=== PATIENT | male | born 1940 | race Caucasian/White ===

== ENCOUNTER → 2016-03-30 | Outpatient (CLI) | payer OTHER ==
--- NOTE | 2016-03-30 17:59 | REP ---
RIGHT HIP, TWO VIEWS: Two views of the right hip are performed. There is no acute fracture or dislocation. No intrinsic osseous pathology is seen. There are mild degenerative changes with joint space narrowing, subchondral sclerosis and spurring. IMPRESSION: Mild degenerative changes. No fracture or dislocation. Signed by Chano Naranjo MD 03/31/2016 05:14 P
--- NOTE | 2016-03-30 18:08 | REP ---
RIGHT FEMUR: AP and lateral views of the right femur are performed. Mild joint space narrowing, subchondral sclerosis and spurring is seen at the hip joint. There are mild vascular calcifications in the soft tissues. No acute fracture or dislocation is seen. IMPRESSION: No acute fracture or dislocation. Mild degenerative changes. Signed by Chano Naranjo MD 03/31/2016 05:14 P
--- NOTE | 2016-03-30 18:23 | REP ---
PELVIS, SINGLE VIEW: AP view of the pelvis is performed. There is no acute or dislocation. There are degenerative changes of the lower lumbar spine. IMPRESSION: No acute fracture or dislocation. Signed by Chano Naranjo MD 03/31/2016 05:14 P
== END ==
LOC: M ADAMS 14:47
PROVIDERS: ATTEND Physician Assistant Medical
DX: M25.551 Pain in right hip (principal); W00.9XXA Unspecified fall due to ice and snow, initial encounter; Y92.9 Unspecified place or not applicable; Y93.9 Activity, unspecified; Y99.8 Other external cause status; X58.XXXA Exposure to other specified factors, initial encounter
CPT/HCPCS: 72170; 73502; 73552; G0463

== ENCOUNTER 2016-04-03 09:37 | Emergency (ER) | payer MEDICARE, OTHER ==
--- NOTE | 2016-04-03 11:50 | EDDOCDS ---
Physician Documentation [facility] Name: Neymar Wallis Age: 76 yrs Sex: Male : 1940 Arrival Date: 04/03/2016 Time: 09:37 Bed PR Private MD: Alissa Gan N. Disposition: 04/03/16 11:22 Discharged to Home/Self Care. Impression: Cyst of epididymis - SIMPLE CYSTS IN EACH TESTIS ON U.S., Hydrocele, unspecified - LEFT, Pain in right hip - GROIN PAIN. - Condition is Stable. - Discharge Instructions: Hip Pain. - Prescriptions for Naprosyn 250 mg Oral Tablet - take 1 tablet by ORAL route every 12 hours As needed ONLY TAKE EVERY 12 HOURS. PRN.DO NOT TAKE ANY IBUPROFEN WITH THIS MEDICATION.; 30 tablet. - Medication Reconciliation, Local Pharmacy Hours form. - Follow up: Emergency Department; When: As needed; Reason: Worsening of conditions. Follow up: Private Physician; When: 2 - 3 days; Reason: Wound/Symptom Recheck, Recheck today's complaints, Continuance of care. - Problem is new. - Symptoms are unchanged. - Notes: YOUR ULTRASOUND SHOWED SOME SMALL SIMPLE CYSTS ON THE TESTES AND A HYDROCELE ON THE LEFT SIDE, WHICH IS A FLUID COLLECTION THAT IS TYPICALLY BENIGN, BUT CAN CAUSE SOME SWELLING AND PAIN. PLEASE FOLLOW UP WITH YOUR PRIMARY CARE PROVIDER IN THE NEXT WEEK TO RECHECK YOUR SYMPTOMS. THERE WAS NO SIGN OF A HERNIA ON THE ULTRASOUND. Historical: - Allergies: Codeine Sulfate (Unknown); - Home Meds: 1. omeprazole 40 mg Oral cpDR 1 cap once daily (Last dose: 04/03/2016 05:00) 2. tamsulosin 0.4 mg oral cp24 1 cap nightly (Last dose: 04/02/2016) 3. simvastatin 20 mg Oral tab 1 tab once daily (Last dose: 04/03/2016 05:00) 4. ramipril 5 mg Oral cap 1 cap nightly (Last dose: 04/02/2016) 5. Advair Diskus 45/21 Inhl 2 puff 2 times per day (Last dose: 04/03/2016 05:00) 6. ProAir HFA 90 mcg/actuation inhalation HFAA 1 puff every 4 hours as needed (Last dose: Unknown) 7. ibuprofen 200 mg Oral cap 3 caps every 4-6 hours as needed (Last dose: 04/03/2016 07:00) - PMHx: GERD; Hypertension; Hypercholesterolemia; BPH; COPD; - PSHx: umbilical hernia repair; - Social history: Smoking status: Patient states former smoker of tobacco. No barriers to communication noted, The patient speaks fluent Uzbek. - Family history: Not pertinent. - : The pt / caregiver states he / she is not on anticoagulants. Home medication list is obtained from the patient. - Exposure Risk Screening:: None identified. Vital Signs: 04/03 09:38 BP 173 / 86; Pulse 69; Resp 16; Temp 96.0; Pulse Ox 98% ; Weight 97.98 kg / 216.01 lbs; elp Height 5 ft. 10 in. (177.80 cm); Pain 8/10; 11:33 BP 158 / 77; Pulse 61; Resp 18; Temp 98.7(O); Pulse Ox 96% on R/A; Pain 0/10; nb2 09:38 Body Mass Index 30.99 (97.98 kg, 177.80 cm) elp MDM: 09:59 US Scrotal Ordered. EDMS 10:03 Financial registration complete. lg 10:09 Pelvis, limited US Ordered. EDMS 10:09 DUPLEX SCAN LIMITED (DOPPLER) Ordered. EDMS 10:51 [facility] Payment Agreement was scanned into [employer]. and attached to record. lg Signatures: Dispatcher [employer] EDAR Telma Rush RN RN dls Ganter, LoriLee, Reg Reg lg Isidra Baltazar RN RN jc4 Yaz Barillas PA-C PA-C dt4 The chart was reviewed and I authenticate all verbal orders and agree with the evaluation and treatment provided.Attachments: 10:51 [facility] Payment Agreement lg MTDD
--- NOTE | 2016-04-03 11:50 | EDDOCDS ---
Nurse's Notes [facility] Name: Neymar Wallis Age: 76 yrs Sex: Male : 1940 Arrival Date: 04/03/2016 Time: 09:37 Bed PR2 Private MD: Alissa Gan N. Diagnosis: Cyst of epididymis-SIMPLE CYSTS IN EACH TESTIS ON U.S.;Hydrocele, unspecified-LEFT;Pain in right hip-GROIN PAIN Presentation: 04/03 09:40 Presenting complaint: Patient states: "I slipped and fell before Myles, they jc4 X-rayed my hip and now we are looking for something else". Complains of pain in right groin. States developed pain 3-4 days following fall. Denies any urinary symptoms. Pt states that pain is worse with movement, unable to lie on left side. Adult Sepsis Screening: The patient does not have new or worsening altered mentation. Patient's respiratory rate is less than 22. Systolic blood pressure is greater than 100. Patient has a qSOFA score of 0- Negative Sepsis Screen. Suicide/Homicide risk assessment- the patient denies having any suicidal and/or homicidal ideations and does not present with any other emotional, behavioral or mental health complaints. Status: Patient is not a dispatcher service or work or dependent. Transition of care: patient was not received from another setting of care. 09:40 Acuity: GARY Level 4 jc4 09:40 Method Of Arrival: Walkin/Carried/Asstd jc4 Triage Assessment: 09:46 General: Appears in no apparent distress. Pain: Pain currently is 5 out of 10 on a pain jc4 scale. GI: Reports that he has had no nausea, vomiting or diarrhea. Historical: - Allergies: Codeine Sulfate (Unknown); - Home Meds: 1. omeprazole 40 mg Oral cpDR 1 cap once daily (Last dose: 04/03/2016 05:00) 2. tamsulosin 0.4 mg oral cp24 1 cap nightly (Last dose: 04/02/2016) 3. simvastatin 20 mg Oral tab 1 tab once daily (Last dose: 04/03/2016 05:00) 4. ramipril 5 mg Oral cap 1 cap nightly (Last dose: 04/02/2016) 5. Advair Diskus 45/21 Inhl 2 puff 2 times per day (Last dose: 04/03/2016 05:00) 6. ProAir HFA 90 mcg/actuation inhalation HFAA 1 puff every 4 hours as needed (Last dose: Unknown) 7. ibuprofen 200 mg Oral cap 3 caps every 4-6 hours as needed (Last dose: 04/03/2016 07:00) - PMHx: GERD; Hypertension; Hypercholesterolemia; BPH; COPD; - PSHx: umbilical hernia repair; - Social history: Smoking status: Patient states former smoker of tobacco. No barriers to communication noted, The patient speaks fluent Nicaraguan. - Family history: Not pertinent. - : The pt / caregiver states he / she is not on anticoagulants. Home medication list is obtained from the patient. - Exposure Risk Screening:: None identified. Screenin:47 Screening information is obtained from the patient. Primary language is Nicaraguan. Fall dls risk: No risks identified. Assistance ADL's: requires no assistance with activities of daily living. Abuse/DV Screen: The patient / caregiver reports he/she is: not in a situation that causes fear, pain or injury. Nutritional screening: No deficits noted. Advance Directives: Currently, there is no health care proxy. There is no active DNR order. There is no living will. There is no Power of Tub Wash Operator. Advance directive information has not previously been placed in an [facility] medical record. home support is adequate. Assessment: 11:47 General: Appears slender, uncomfortable, well developed, well nourished, well groomed, dls Behavior is cooperative. Awake, alert, oriented. Skin warm and dry. Moves all extremities. Bilateral breath sounds clear. Respirations unlabored. Abdomen soft, non-tender. No apparent distress. The patient / caregiver is instructed regarding the plan of care and ED course. Vital Signs: 09:38 BP 173 / 86; Pulse 69; Resp 16; Temp 96.0; Pulse Ox 98% ; Weight 97.98 kg; Height 5 ft. elp 10 in. (177.80 cm); Pain 8/10; 11:33 BP 158 / 77; Pulse 61; Resp 18; Temp 98.7(O); Pulse Ox 96% on R/A; Pain 0/10; nb2 09:38 Body Mass Index 30.99 (97.98 kg, 177.80 cm) elp Vitals: 09:38 Log In Time: April 03, 2016 at 09:36. [facility] ED Course: 09:38 Patient visited by Radha Sparrow PCA. elp 09:38 Alissa Gan is Private Physician. elp 09:38 Patient moved to Waiting elp 09:39 Patient visited by Radha Sparrow PCA. elp 09:39 Patient moved to Pre RCE elp 09:42 Triage Initiated jc4 09:47 Patient moved to Triage 2 jc4 09:48 [facility] dt4 09:48 Abdifatah Nuñez MD is Attending Physician. dt4 09:48 Patient visited by Yaz Barillas PA-C. dt4 09:59 Patient moved to TR2 dls 10:18 Patient moved to Ultrasound br3 10:31 Patient name changed from Neymar\\S\\G\\S\\Bimal\\S\\ to Neymar\\S\\Gene\\S\\Bimal. EDMS 10:51 [facility] Payment Agreement was scanned into [employer] and attached to record. lg 10:53 Patient moved to TR2 br3 11:15 Patient visited by Telma Rush RN. dls 11:27 Patient moved to PR2 / 26 jc4 11:34 Patient visited by Michelle Saha. nb2 11:47 Patient has correct armband on for positive identification. Bed in low position. Call dls light in reach. 11:49 No IV's were initiated during this patient's visit. No procedures done that require dls assistance. Order Results: There are currently no results for this order. Outcome: 11:22 Discharge ordered by Provider. dt4 11:47 The following High Risk Discharge criteria are identified: None. Discharged to home dls ambulatory. Condition: stable. Discharge instructions given to patient, Instructed on discharge instructions, follow up and referral plans. medication usage, Demonstrated understanding of instructions, medications, Pt was receptive of discharge instructions/ teaching. Prescriptions given X 1. Ultrasound Study completed. 11:49 Discharge Assessment: Patient awake, alert and oriented x 3. No cognitive and/or dls functional deficits noted. Patient verbalized understanding of disposition instructions. patient administered narcotics - no. Property sent home with patient. 11:49 Patient left the ED. dls Signatures: Dispatcher [employer] EDMS Telma Rush RN RN Aristides Robbins Reg Reg lg Maggie Kamara br3 Isidra Baltazar, RN RN jc4 Radha Sparrow, EDSON BAND SAW OPERATOR [employer]KE CUTTING elp Yaz Barillas, ANGI PARyan dt4 Michelle Saha nb2 MTDD
--- NOTE | 2016-04-03 12:16 | REP ---
Soft-tissue nonvascular bilateral inguinal ultrasound: History: Right groin pain question hernia. Findings: Bilateral inguinal canals are scanned at rest and with Valsalva. There is no evidence of hernia on either side. No cyst, mass, or adenopathy is seen. Impression: Negative bilateral inguinal sonography. No evidence of hernia, cyst, mass, or adenopathy seen. Signed by Neptali Carbone MD 04/03/2016 02:06 P
--- NOTE | 2016-04-03 12:24 | REP ---
Scrotal sonography: History: Right groin pain. Findings: High-resolution bilateral scrotal sonography is seen. There is no evidence of intratesticular solid mass lesion. There is a 0.5 cm cyst in the superior pole of the right testis and a 0.4 cm simple cyst is seen in the right mid testis. There is a 9 mm cyst and two other smaller cysts in the left testis. A small focal hyperechoic 3 mm area is seen in the left testis which may be dystrophic calcification. There is a small left-sided hydrocele with hypoechoic fluid. Testicular Doppler flow is normal bilaterally. Resistive indices are 0.40 and 0.53 on the right and left respectively. Right testicular dimensions are 4.4 x 2.4 x 3.0 cm. Left testis measures 4.4 x 2.7 x 3.5 cm. There is a large cyst in the left epididymis measuring 19 x 12 x 14 mm. A 4 mm cyst is seen in the head of the epididymis on the right. No other abnormality. Impression: Small left-sided hydrocele. Bilateral simple cysts in each testis and a 19 mm cyst in the head of the epididymis on the left. No acute scrotal abnormality seen. Signed by Neptali Carbone MD 04/03/2016 02:06 P
--- NOTE | 2016-04-06 10:57 | EDDOCDS ---
Physician Documentation [facility] Name: Neymar Wallis Age: 76 yrs Sex: Male : 1940 Arrival Date: 04/03/2016 Time: 09:37 Bed PR Private MD: Alissa Gan N. Disposition: 04/03/16 11:22 Discharged to Home/Self Care. Impression: Cyst of epididymis - SIMPLE CYSTS IN EACH TESTIS ON U.S., Hydrocele, unspecified - LEFT, Pain in right hip - GROIN PAIN. - Condition is Stable. - Discharge Instructions: Hip Pain. - Prescriptions for Naprosyn 250 mg Oral Tablet - take 1 tablet by ORAL route every 12 hours As needed ONLY TAKE EVERY 12 HOURS. PRN.DO NOT TAKE ANY IBUPROFEN WITH THIS MEDICATION.; 30 tablet. - Medication Reconciliation, Local Pharmacy Hours form. - Follow up: Emergency Department; When: As needed; Reason: Worsening of conditions. Follow up: Private Physician; When: 2 - 3 days; Reason: Wound/Symptom Recheck, Recheck today's complaints, Continuance of care. - Problem is new. - Symptoms are unchanged. - Notes: YOUR ULTRASOUND SHOWED SOME SMALL SIMPLE CYSTS ON THE TESTES AND A HYDROCELE ON THE LEFT SIDE, WHICH IS A FLUID COLLECTION THAT IS TYPICALLY BENIGN, BUT CAN CAUSE SOME SWELLING AND PAIN. PLEASE FOLLOW UP WITH YOUR PRIMARY CARE PROVIDER IN THE NEXT WEEK TO RECHECK YOUR SYMPTOMS. THERE WAS NO SIGN OF A HERNIA ON THE ULTRASOUND. Historical: - Allergies: Codeine Sulfate (Unknown); - Home Meds: 1. omeprazole 40 mg Oral cpDR 1 cap once daily (Last dose: 04/03/2016 05:00) 2. tamsulosin 0.4 mg oral cp24 1 cap nightly (Last dose: 04/02/2016) 3. simvastatin 20 mg Oral tab 1 tab once daily (Last dose: 04/03/2016 05:00) 4. ramipril 5 mg Oral cap 1 cap nightly (Last dose: 04/02/2016) 5. Advair Diskus 45/21 Inhl 2 puff 2 times per day (Last dose: 04/03/2016 05:00) 6. ProAir HFA 90 mcg/actuation inhalation HFAA 1 puff every 4 hours as needed (Last dose: Unknown) 7. ibuprofen 200 mg Oral cap 3 caps every 4-6 hours as needed (Last dose: 04/03/2016 07:00) - PMHx: GERD; Hypertension; Hypercholesterolemia; BPH; COPD; - PSHx: umbilical hernia repair; - Social history: Smoking status: Patient states former smoker of tobacco. No barriers to communication noted, The patient speaks fluent Kyrgyz. - Family history: Not pertinent. - : The pt / caregiver states he / she is not on anticoagulants. Home medication list is obtained from the patient. - Exposure Risk Screening:: None identified. Vital Signs: 04/03 09:38 BP 173 / 86; Pulse 69; Resp 16; Temp 96.0; Pulse Ox 98% ; Weight 97.98 kg / 216.01 lbs; elp Height 5 ft. 10 in. (177.80 cm); Pain 8/10; 11:33 BP 158 / 77; Pulse 61; Resp 18; Temp 98.7(O); Pulse Ox 96% on R/A; Pain 0/10; nb2 09:38 Body Mass Index 30.99 (97.98 kg, 177.80 cm) elp MDM: 09:59 US Scrotal Ordered. EDMS 10:03 Financial registration complete. lg 10:09 Pelvis, limited US Ordered. EDMS 10:09 DUPLEX SCAN LIMITED (DOPPLER) Ordered. EDMS 10:51 [facility] Payment Agreement was scanned into [employer] and attached to record. lg 13:38 T-Sheet-- Draft Copy was scanned into [employer] and attached to record. gb 13:39 Radiology Report was scanned into [employer] and attached to record. gb Signatures: Dispatcher [employer] EDTelma Salgado RN RN dls Barnhardt, Gloria, Reg Reg gb Aristides Reynolds, Reg Reg lg Isidra Baltazar RN RN jc4 Yaz Barillas, ANGI musa4 The chart was reviewed and I authenticate all verbal orders and agree with the evaluation and treatment provided.Attachments: 10:51 [facility] Payment Agreement lg 13:38 T-Sheet-- Draft Copy gb Chart Complete MTDD
--- NOTE | 2016-04-06 10:57 | EDDOCDS ---
Physician Documentation [facility] Name: Neymar Wallis Age: 76 yrs Sex: Male : 1940 Arrival Date: 04/03/2016 Time: 09:37 Bed PR Private MD: Alissa Gan N. Disposition: 04/03/16 11:22 Discharged to Home/Self Care. Impression: Cyst of epididymis - SIMPLE CYSTS IN EACH TESTIS ON U.S., Hydrocele, unspecified - LEFT, Pain in right hip - GROIN PAIN. - Condition is Stable. - Discharge Instructions: Hip Pain. - Prescriptions for Naprosyn 250 mg Oral Tablet - take 1 tablet by ORAL route every 12 hours As needed ONLY TAKE EVERY 12 HOURS. PRN.DO NOT TAKE ANY IBUPROFEN WITH THIS MEDICATION.; 30 tablet. - Medication Reconciliation, Local Pharmacy Hours form. - Follow up: Emergency Department; When: As needed; Reason: Worsening of conditions. Follow up: Private Physician; When: 2 - 3 days; Reason: Wound/Symptom Recheck, Recheck today's complaints, Continuance of care. - Problem is new. - Symptoms are unchanged. - Notes: YOUR ULTRASOUND SHOWED SOME SMALL SIMPLE CYSTS ON THE TESTES AND A HYDROCELE ON THE LEFT SIDE, WHICH IS A FLUID COLLECTION THAT IS TYPICALLY BENIGN, BUT CAN CAUSE SOME SWELLING AND PAIN. PLEASE FOLLOW UP WITH YOUR PRIMARY CARE PROVIDER IN THE NEXT WEEK TO RECHECK YOUR SYMPTOMS. THERE WAS NO SIGN OF A HERNIA ON THE ULTRASOUND. Historical: - Allergies: Codeine Sulfate (Unknown); - Home Meds: 1. omeprazole 40 mg Oral cpDR 1 cap once daily (Last dose: 04/03/2016 05:00) 2. tamsulosin 0.4 mg oral cp24 1 cap nightly (Last dose: 04/02/2016) 3. simvastatin 20 mg Oral tab 1 tab once daily (Last dose: 04/03/2016 05:00) 4. ramipril 5 mg Oral cap 1 cap nightly (Last dose: 04/02/2016) 5. Advair Diskus 45/21 Inhl 2 puff 2 times per day (Last dose: 04/03/2016 05:00) 6. ProAir HFA 90 mcg/actuation inhalation HFAA 1 puff every 4 hours as needed (Last dose: Unknown) 7. ibuprofen 200 mg Oral cap 3 caps every 4-6 hours as needed (Last dose: 04/03/2016 07:00) - PMHx: GERD; Hypertension; Hypercholesterolemia; BPH; COPD; - PSHx: umbilical hernia repair; - Social history: Smoking status: Patient states former smoker of tobacco. No barriers to communication noted, The patient speaks fluent German. - Family history: Not pertinent. - : The pt / caregiver states he / she is not on anticoagulants. Home medication list is obtained from the patient. - Exposure Risk Screening:: None identified. Vital Signs: 04/03 09:38 BP 173 / 86; Pulse 69; Resp 16; Temp 96.0; Pulse Ox 98% ; Weight 97.98 kg / 216.01 lbs; elp Height 5 ft. 10 in. (177.80 cm); Pain 8/10; 11:33 BP 158 / 77; Pulse 61; Resp 18; Temp 98.7(O); Pulse Ox 96% on R/A; Pain 0/10; nb2 09:38 Body Mass Index 30.99 (97.98 kg, 177.80 cm) elp MDM: 09:59 US Scrotal Ordered. EDMS 10:03 Financial registration complete. lg 10:09 Pelvis, limited US Ordered. EDMS 10:09 DUPLEX SCAN LIMITED (DOPPLER) Ordered. EDMS 10:51 [facility] Payment Agreement was scanned into [employer] and attached to record. lg 13:38 T-Sheet-- Draft Copy was scanned into [employer] and attached to record. gb 13:39 Radiology Report was scanned into [employer] and attached to record. gb Signatures: Dispatcher [employer] EDTelma Salgado RN RN dls Barnhardt, Gloria, Reg Reg gb Aristides Reynolds, Reg Reg lg Isidra Baltazar RN RN jc4 Yaz Barillas, ANGI musa4 The chart was reviewed and I authenticate all verbal orders and agree with the evaluation and treatment provided.Attachments: 10:51 [facility] Payment Agreement lg 13:38 T-Sheet-- Draft Copy gb Chart Complete MTDD
--- NOTE | 2016-04-06 10:57 | EDDOCDS ---
Nurse's Notes [facility] Name: Neymar Wallis Age: 76 yrs Sex: Male : 1940 Arrival Date: 04/03/2016 Time: 09:37 Bed PR2 Private MD: Alissa Gan N. Diagnosis: Cyst of epididymis-SIMPLE CYSTS IN EACH TESTIS ON U.S.;Hydrocele, unspecified-LEFT;Pain in right hip-GROIN PAIN Presentation: 04/03 09:40 Presenting complaint: Patient states: "I slipped and fell before Myles, they jc4 X-rayed my hip and now we are looking for something else". Complains of pain in right groin. States developed pain 3-4 days following fall. Denies any urinary symptoms. Pt states that pain is worse with movement, unable to lie on left side. Adult Sepsis Screening: The patient does not have new or worsening altered mentation. Patient's respiratory rate is less than 22. Systolic blood pressure is greater than 100. Patient has a qSOFA score of 0- Negative Sepsis Screen. Suicide/Homicide risk assessment- the patient denies having any suicidal and/or homicidal ideations and does not present with any other emotional, behavioral or mental health complaints. 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 Transition of care: patient was not received from another setting of care. 09:40 Acuity: GARY Level 4 jc4 09:40 Method Of Arrival: Walkin/Carried/Asstd jc4 Triage Assessment: 09:46 General: Appears in no apparent distress. Pain: Pain currently is 5 out of 10 on a pain jc4 scale. GI: Reports that he has had no nausea, vomiting or diarrhea. Historical: - Allergies: Codeine Sulfate (Unknown); - Home Meds: 1. omeprazole 40 mg Oral cpDR 1 cap once daily (Last dose: 04/03/2016 05:00) 2. tamsulosin 0.4 mg oral cp24 1 cap nightly (Last dose: 04/02/2016) 3. simvastatin 20 mg Oral tab 1 tab once daily (Last dose: 04/03/2016 05:00) 4. ramipril 5 mg Oral cap 1 cap nightly (Last dose: 04/02/2016) 5. Advair Diskus 45/21 Inhl 2 puff 2 times per day (Last dose: 04/03/2016 05:00) 6. ProAir HFA 90 mcg/actuation inhalation HFAA 1 puff every 4 hours as needed (Last dose: Unknown) 7. ibuprofen 200 mg Oral cap 3 caps every 4-6 hours as needed (Last dose: 04/03/2016 07:00) - PMHx: GERD; Hypertension; Hypercholesterolemia; BPH; COPD; - PSHx: umbilical hernia repair; - Social history: Smoking status: Patient states former smoker of tobacco. No barriers to communication noted, The patient speaks fluent [place] Citizen. - Family history: Not pertinent. - : The pt / caregiver states he / she is not on anticoagulants. Home medication list is obtained from the patient. - Exposure Risk Screening:: None identified. Screenin:47 Screening information is obtained from the patient. Primary language is [place] Citizen. Fall dls risk: No risks identified. Assistance ADL's: requires no assistance with activities of daily living. Abuse/DV Screen: The patient / caregiver reports he/she is: not in a situation that causes fear, pain or injury. Nutritional screening: No deficits noted. Advance Directives: Currently, there is no health care proxy. There is no active DNR order. There is no living will. There is no Power of Building Maintenance Repairer. Advance directive information has not previously been placed in an [facility] medical record. home support is adequate. Assessment: 11:47 General: Appears slender, uncomfortable, well developed, well nourished, well groomed, dls Behavior is cooperative. Awake, alert, oriented. Skin warm and dry. Moves all extremities. Bilateral breath sounds clear. Respirations unlabored. Abdomen soft, non-tender. No apparent distress. The patient / caregiver is instructed regarding the plan of care and ED course. Vital Signs: 09:38 BP 173 / 86; Pulse 69; Resp 16; Temp 96.0; Pulse Ox 98% ; Weight 97.98 kg; Height 5 ft. elp 10 in. (177.80 cm); Pain 8/10; 11:33 BP 158 / 77; Pulse 61; Resp 18; Temp 98.7(O); Pulse Ox 96% on R/A; Pain 0/10; nb2 09:38 Body Mass Index 30.99 (97.98 kg, 177.80 cm) elp Vitals: 09:38 Log In Time: April 03, 2016 at 09:36. [facility] ED Course: 09:38 Patient visited by Radha Sparrow PCA. elp 09:38 Alissa Gan is Private Physician. elp 09:38 Patient moved to Waiting elp 09:39 Patient visited by Radha Sparrow PCA. elp 09:39 Patient moved to Pre RCE elp 09:42 Triage Initiated jc4 09:47 Patient moved to Triage 2 jc4 09:48 [facility] dt4 09:48 Abdifatah Nuñez MD is Attending Physician. dt4 09:48 Patient visited by Yaz Barillas PA-C. dt4 09:59 Patient moved to TR2 dls 10:18 Patient moved to Ultrasound br3 10:31 Patient name changed from Neymar\\S\\G\\S\\Bimal\\S\\ to Neymar\\S\\Gene\\S\\Bimal. EDMS 10:51 [facility] Payment Agreement was scanned into [employer] and attached to record. lg 10:53 Patient moved to TR2 br3 11:15 Patient visited by Telma Rush RN. dls 11:27 Patient moved to PR2 / 26 jc4 11:34 Patient visited by Michelle Saha. nb2 11:47 Patient has correct armband on for positive identification. Bed in low position. Call dls light in reach. 11:49 No IV's were initiated during this patient's visit. No procedures done that require dls assistance. 12:40 Pelvis, limited US Returned. EDMS 12:40 US Scrotal Returned. EDMS 13:38 T-Sheet-- Draft Copy was scanned into [employer] and attached to record. gb 13:39 Radiology Report was scanned into [employer] and attached to record. gb Order Results: Radiology Order: US Scrotal Test: US Scrotal REASON FOR EXAMINATION: RIGHT GROIN PAIN, ?HERNIA; Scrotal sonography:; ; History: Right groin pain.; ; Findings: High-resolution bilateral scrotal sonography is seen. There is no; evidence of intratesticular solid mass lesion. There is a 0.5 cm cyst in the; superior pole of the right testis and a 0.4 cm simple cyst is seen in the right; mid testis. There is a 9 mm cyst and two other smaller cysts in the left testis.; A small focal hyperechoic 3 mm area is seen in the left testis which may be; dystrophic calcification. There is a small left-sided hydrocele with hypoechoic; fluid. Testicular Doppler flow is normal bilaterally. Resistive indices are; 0.40 and 0.53 on the right and left respectively. Right testicular dimensions; are 4.4 x 2.4 x 3.0 cm. Left testis measures 4.4 x 2.7 x 3.5 cm. There is a; large cyst in the left epididymis measuring 19 x 12 x 14 mm. A 4 mm cyst is seen; in the head of the epididymis on the right. No other abnormality.; ; Impression:; ; Small left-sided hydrocele. Bilateral simple cysts in each testis and a 19 mm; cyst in the head of the epididymis on the left. No acute scrotal abnormality; seen.; ; ; Signed by; Neptali Carbone MD 04/03/2016 02:06 P; Radiology Order: Pelvis, limited US Test: Pelvis, limited US REASON FOR EXAMINATION: RIGHT GROIN PAIN, ? HERNIA; Soft-tissue nonvascular bilateral inguinal ultrasound:; ; History: Right groin pain question hernia.; ; Findings: Bilateral inguinal canals are scanned at rest and with Valsalva.; There is no evidence of hernia on either side. No cyst, mass, or adenopathy is; seen.; ; Impression:; ; Negative bilateral inguinal sonography. No evidence of hernia, cyst, mass, or; adenopathy seen.; ; ; Signed by; Neptali Carbone MD 04/03/2016 02:06 P; Outcome: 11:22 Discharge ordered by Provider. dt4 11:47 The following High Risk Discharge criteria are identified: None. Discharged to home dls ambulatory. Condition: stable. Discharge instructions given to patient, Instructed on discharge instructions, follow up and referral plans. medication usage, Demonstrated understanding of instructions, medications, Pt was receptive of discharge instructions/ teaching. Prescriptions given X 1. Ultrasound Study completed. 11:49 Discharge Assessment: Patient awake, alert and oriented x 3. No cognitive and/or dls functional deficits noted. Patient verbalized understanding of disposition instructions. patient administered narcotics - no. Property sent home with patient. 11:49 Patient left the ED. dls Signatures: Dispatcher [facility] Telma Rush RN RN dls Sadie Castelan, Reg Reg gb Aristides Reynolds, Reg Reg lg Maggie Kamara br3 Isidra Baltazar, RN RN jc4 Radha Sparrow, EDSON SENIOR NET ENGINEER stephanp Yaz Barillas, PA-C PA-C dt4 Michelle Saha nb2 Chart Complete MTDD
== END 2016-04-03 11:49 | disposition home or self-care (01) ==
LOC: M ED 09:37
DX: N43.3 Hydrocele, unspecified (principal); N44.2 Benign cyst of testis; I10 Essential (primary) hypertension; J44.9 Chronic obstructive pulmonary disease, unspecified; N40.0 Benign prostatic hyperplasia without lower urinary tract symptoms; K21.9 Gastro-esophageal reflux disease without esophagitis; E78.00 Pure hypercholesterolemia, unspecified; Z79.899 Other long term (current) drug therapy; Z79.51 Long term (current) use of inhaled steroids; Z88.2 Allergy status to sulfonamides; Z88.5 Allergy status to narcotic agent; Z87.891 Personal history of nicotine dependence

== ENCOUNTER → 2016-08-17 | Outpatient (REF) | payer OTHER ==
[2016-08-17 19:53] LABS: BASO % 0.4 % (0.0-1.0); EOS # 0.3 K/mm3 (0.0-0.50); LARGE UNSTAINED CELL # 0.2 K/mm3 (0.0-0.4); LARGE UNSTAINED CELL % 2.4 % (0.0-4.0); LYMPH # 1.9 K/mm3 (1.5-4.5); LYMPH % 22.3 % (24.0-44.0); MEAN CORPUSCULAR HEMOGLOBIN 32.5 pg (27.0-33.0); MEAN CORPUSCULAR HGB CONC 33.4 g/dl (32.0-36.5); MEAN CORPUSCULAR VOLUME 97.5 fl (80.0-96.0); MONO # 0.5 K/mm3 (0.0-0.8); MONO % 5.4 % (0.0-5.0); NEUTROPHILS # 5.7 K/mm3 (1.8-7.7); NEUTROPHILS % 66.6 % (36.0-66.0); PLATELET COUNT, AUTOMATED 244 k/mm3 (150-450); RED CELL DISTRIBUTION WIDTH 12.9 % (11.5-14.5); WHITE BLOOD COUNT 8.6 K/mm3 (4.0-10.0)
[2016-08-17 20:03] LABS: ALBUMIN 3.6 GM/DL (3.2-5.2); ALBUMIN/GLOBULIN RATIO 1.13 (1.00-1.93); ALKALINE PHOSPHATASE 73 U/L (45-117); ALT/SGPT 31 U/L (12-78); ANION GAP 8 MEQ/L (8-16); AST/SGOT 26 U/L (15-37); BILIRUBIN,TOTAL 0.5 MG/DL (0.2-1.0); BLOOD UREA NITROGEN 32 MG/DL (7-18); CALCIUM LEVEL 8.6 MG/DL (8.8-10.2); CARBON DIOXIDE LEVEL 29 MEQ/L (21-32); CHLORIDE LEVEL 103 MEQ/L (98-107); CHOLESTEROL LEVEL 195 MG/DL (<200); CREATININE FOR GFR 1.06 MG/DL (0.70-1.30); GLOMERULAR FILTRATION RATE > 60.0 (>42); GLUCOSE, FASTING 81 MG/DL (83-110); POTASSIUM SERUM 4.2 MEQ/L (3.5-5.1); SODIUM LEVEL 140 MEQ/L (136-145); TOTAL PROTEIN 6.8 GM/DL (6.4-8.2); TRIGLYCERIDES LEVEL 78 MG/DL (<150)
== END ==
LOC: M SFHCADAM 15:44
PROVIDERS: ATTEND Physician Assistant Medical
DX: E78.4 Other hyperlipidemia (principal); N40.1 Benign prostatic hyperplasia with lower urinary tract symptoms; Z12.5 Encounter for screening for malignant neoplasm of prostate
CPT/HCPCS: 80053; 80061; 84443; 85025; G0103

== ENCOUNTER → 2017-02-11 | Outpatient (REF) | payer OTHER ==
[2017-02-11 19:55] LABS: BASO # 0.1 10^3/uL (0.0-0.2); BASO % 0.9 % (0.0-1.0); EOS # 0.4 10^3/uL (0.0-0.50); IMMATURE GRANULOCYTE % 0.6 % (0-0); LYMPH # 2.2 10^3/uL (1.5-4.5); LYMPH % 23.7 % (24.0-44.0); MEAN CORPUSCULAR HEMOGLOBIN 31.6 pg (27.0-33.0); MEAN CORPUSCULAR HGB CONC 31.6 g/dl (32.0-36.5); MEAN CORPUSCULAR VOLUME 100.2 fl (80.0-96.0); MONO # 0.8 10^3/uL (0.0-0.8); MONO % 8.3 % (0.0-5.0); NEUTROPHILS # 5.7 10^3/uL (1.8-7.7); NEUTROPHILS % 62.5 % (36.0-66.0); PLATELET COUNT, AUTOMATED 254 10^3/uL (150-450); RED CELL DISTRIBUTION WIDTH 12.9 % (11.5-14.5); WHITE BLOOD COUNT 9.1 10^3/uL (4.0-10.0)
[2017-02-11 20:24] LABS: ALBUMIN 3.7 GM/DL (3.2-5.2); ALBUMIN/GLOBULIN RATIO 1.06 (1.00-1.93); ALKALINE PHOSPHATASE 80 U/L (45-117); ALT/SGPT 24 U/L (12-78); ANION GAP 5 MEQ/L (8-16); AST/SGOT 22 U/L (7-37); BILIRUBIN,TOTAL 0.5 MG/DL (0.2-1.0); BLOOD UREA NITROGEN 18 MG/DL (7-18); CARBON DIOXIDE LEVEL 33 MEQ/L (21-32); CHLORIDE LEVEL 104 MEQ/L (98-107); CHOLESTEROL LEVEL 222 MG/DL (<200); CREATININE FOR GFR 0.89 MG/DL (0.70-1.30); GLOMERULAR FILTRATION RATE > 60.0 (>42); GLUCOSE, FASTING 91 MG/DL (83-110); POTASSIUM SERUM 4.1 MEQ/L (3.5-5.1); SODIUM LEVEL 142 MEQ/L (136-145); TOTAL PROTEIN 7.2 GM/DL (6.4-8.2); TRIGLYCERIDES LEVEL 95 MG/DL (<150)
== END ==
LOC: M SFHCADAM 13:52
PROVIDERS: ATTEND Family Medicine
DX: E55.9 Vitamin D deficiency, unspecified (principal); E78.4 Other hyperlipidemia

== ENCOUNTER → 2017-12-17 | Outpatient (REF) | payer OTHER ==
[2017-12-17 13:58] LABS: ALBUMIN 3.5 GM/DL (3.2-5.2); ALKALINE PHOSPHATASE 84 U/L (45-117); ALT/SGPT 24 U/L (12-78); ANION GAP 8 MEQ/L (8-16); AST/SGOT 13 U/L (7-37); BILIRUBIN,TOTAL 0.6 MG/DL (0.2-1.0); BLOOD UREA NITROGEN 20 MG/DL (7-18); CALCIUM LEVEL 8.7 MG/DL (8.8-10.2); CARBON DIOXIDE LEVEL 30 MEQ/L (21-32); CHLORIDE LEVEL 106 MEQ/L (98-107); CHOLESTEROL LEVEL 202 MG/DL (<200); CHOLESTEROL RISK RATIO 3.672 (<5); CREATININE FOR GFR 0.87 MG/DL (0.70-1.30); GLOMERULAR FILTRATION RATE > 60.0 (>42); GLUCOSE, FASTING 104 MG/DL (70-100); HDL CHOLESTEROL 55 MG/DL (>40); LDL CHOLESTEROL 137 MG/DL (<100); NON-HDL-C 147 MG/DL; POTASSIUM SERUM 4.3 MEQ/L (3.5-5.1); SODIUM LEVEL 144 MEQ/L (136-145); TRIGLYCERIDES LEVEL 52 MG/DL (<150)
[2017-12-17 14:06] LABS: BASO # 0.1 10^3/uL (0.0-0.2); BASO % 0.7 % (0.0-1.0); EOS # 0.4 10^3/uL (0.0-0.50); HEMATOCRIT 45.1 % (42.0-52.0); HEMOGLOBIN 14.5 g/dl (13.5-17.5); IMMATURE GRANULOCYTE % 0.5 % (0-3.0); LYMPH # 1.9 10^3/uL (1.5-4.5); MEAN CORPUSCULAR HGB CONC 32.2 g/dl (32.0-36.5); MEAN CORPUSCULAR VOLUME 99.6 fl (80.0-96.0); MONO # 0.7 10^3/uL (0.0-0.8); NEUTROPHILS # 5.7 10^3/uL (1.8-7.7); NEUTROPHILS % 64.8 % (36.0-66.0); PLATELET COUNT, AUTOMATED 226 10^3/uL (150-450); RED BLOOD COUNT 4.53 10^6/uL (4.30-6.10); RED CELL DISTRIBUTION WIDTH 13.1 % (11.5-14.5); WHITE BLOOD COUNT 8.8 10^3/uL (4.0-10.0)
== END ==
LOC: M SFHCADAM 08:04
DX: E55.9 Vitamin D deficiency, unspecified (principal); E78.4 Other hyperlipidemia; J42 Unspecified chronic bronchitis
CPT/HCPCS: 80053

== ENCOUNTER → 2018-01-09 | Outpatient (REF) | payer OTHER ==
[2018-01-09 13:02] LABS: ANION GAP 7 MEQ/L (8-16); BLOOD UREA NITROGEN 23 MG/DL (7-18); CALCIUM LEVEL 8.9 MG/DL (8.8-10.2); CARBON DIOXIDE LEVEL 31 MEQ/L (21-32); CHLORIDE LEVEL 102 MEQ/L (98-107); CREATININE FOR GFR 1.03 MG/DL (0.70-1.30); GLOMERULAR FILTRATION RATE > 60.0 (>42); GLUCOSE, FASTING 96 MG/DL (70-100); POTASSIUM SERUM 4.8 MEQ/L (3.5-5.1); SODIUM LEVEL 140 MEQ/L (136-145)
== END ==
LOC: M SFHCADAM 09:13
DX: R60.1 Generalized edema (principal)
CPT/HCPCS: 80048

== ENCOUNTER → 2018-01-24 | Outpatient (CLI) | payer OTHER | LOC: M CARPUL 08:59 | DX: R60.1 Generalized edema (principal) | CPT/HCPCS: 93306 ==

== ENCOUNTER → 2018-01-30 | Outpatient (REF) | payer OTHER ==
[2018-01-30 20:07] LABS: ALBUMIN 3.4 GM/DL (3.2-5.2); ALBUMIN/GLOBULIN RATIO 0.94 (1.00-1.93); ALKALINE PHOSPHATASE 89 U/L (45-117); ALT/SGPT 26 U/L (12-78); ANION GAP 6 MEQ/L (8-16); AST/SGOT 21 U/L (7-37); BILIRUBIN,TOTAL 0.6 MG/DL (0.2-1.0); BLOOD UREA NITROGEN 18 MG/DL (7-18); CALCIUM LEVEL 8.4 MG/DL (8.8-10.2); CARBON DIOXIDE LEVEL 32 MEQ/L (21-32); CHLORIDE LEVEL 105 MEQ/L (98-107); CREATININE FOR GFR 1.03 MG/DL (0.70-1.30); GLOMERULAR FILTRATION RATE > 60.0 (>42); GLUCOSE, FASTING 93 MG/DL (70-100); POTASSIUM SERUM 4.1 MEQ/L (3.5-5.1); SODIUM LEVEL 143 MEQ/L (136-145)
== END ==
LOC: M SFHCADAM 14:27
DX: I48.1 Persistent atrial fibrillation (principal); I10 Essential (primary) hypertension
CPT/HCPCS: 84443

== ENCOUNTER → 2018-01-30 | Outpatient (CLI) | payer OTHER | LOC: M ADAMS 14:56 | DX: I48.1 Persistent atrial fibrillation (principal); I10 Essential (primary) hypertension ==

== ENCOUNTER → 2018-06-27 | Outpatient (REF) | payer MEDICARE ==
[2018-06-27 12:46] LABS: BASO # 0.1 10^3/uL (0.0-0.2); BASO % 0.5 % (0.0-1.0); EOS # 0.2 10^3/uL (0.0-0.50); EOS % 1.7 % (0.0-3.0); HEMATOCRIT 41.4 % (42.0-52.0); HEMOGLOBIN 13.2 g/dl (13.5-17.5); LYMPH # 1.4 10^3/uL (1.5-4.5); LYMPH % 11.8 % (24.0-44.0); MEAN CORPUSCULAR HEMOGLOBIN 31.2 pg (27.0-33.0); MEAN CORPUSCULAR HGB CONC 31.9 g/dl (32.0-36.5); MEAN CORPUSCULAR VOLUME 97.9 fl (80.0-96.0); MONO # 1.2 10^3/uL (0.0-0.8); MONO % 9.9 % (0.0-5.0); NEUTROPHILS # 8.8 10^3/uL (1.8-7.7); NEUTROPHILS % 75.2 % (36.0-66.0); PLATELET COUNT, AUTOMATED 326 10^3/uL (150-450); RED BLOOD COUNT 4.23 10^6/uL (4.30-6.10); WHITE BLOOD COUNT 11.7 10^3/uL (4.0-10.0)
[2018-06-27 13:01] LABS: ALBUMIN 2.9 GM/DL (3.2-5.2); ALT/SGPT 20 U/L (12-78); BILIRUBIN,TOTAL 0.7 MG/DL (0.2-1.0); BLOOD UREA NITROGEN 15 MG/DL (7-18); CALCIUM LEVEL 8.6 MG/DL (8.8-10.2); CARBON DIOXIDE LEVEL 29 MEQ/L (21-32); CHLORIDE LEVEL 105 MEQ/L (98-107); CHOLESTEROL LEVEL 226 MG/DL (<200); CREATININE FOR GFR 0.95 MG/DL (0.70-1.30); GLOMERULAR FILTRATION RATE > 60.0 (>42); GLUCOSE, FASTING 99 MG/DL (70-100); HDL CHOLESTEROL 40 MG/DL (>40); LDL CHOLESTEROL 169 MG/DL (<100); NON-HDL-C 186 MG/DL; POTASSIUM SERUM 4.7 MEQ/L (3.5-5.1); SODIUM LEVEL 140 MEQ/L (136-145); THYROID STIMULATING HORMONE 0.904 uIU/ML (0.358-3.740); TOTAL PROTEIN 6.4 GM/DL (6.4-8.2); TRIGLYCERIDES LEVEL 86 MG/DL (<150)
== END ==
LOC: M SFHCADAM 09:45
PROVIDERS: ATTEND Physician Assistant Medical
DX: I48.1 Persistent atrial fibrillation (principal); E78.49 Other hyperlipidemia
CPT/HCPCS: 80053; 80061; 84443; 85025; G0463

== ENCOUNTER 2018-08-04 07:01 | Emergency (ER) | payer MEDICARE ==
[~2018-08-04] VITALS: Ht 177.8 cm; Wt 94.0 kg
[2018-08-04] MEDS ORDERED: INCR1INH (07:08)
[2018-08-04] MEDS ORDERED: ADVA230A (07:08)
[2018-08-04] MEDS ORDERED: ELIQ5TAB (07:08)
[2018-08-04] MEDS ORDERED: OMEP-221 (07:08)
[2018-08-04] MEDS ORDERED: LOSA25TA14 (07:08)
[2018-08-04] MEDS ORDERED: FINA5TAB2 (07:08)
[2018-08-04] MEDS ORDERED: TAMS1CAP17 (07:08)
[2018-08-04] MEDS ORDERED: FURO20TA2 (07:08)
[2018-08-04] MEDS ORDERED: BISO5TAB5 (07:08)
[2018-08-04] MEDS ORDERED: LIDOCAINE 2% 5ML JELLY UROJET TOP ONE (07:30)
[2018-08-04 07:41] LABS: BASO # 0.1 10^3/uL (0.0-0.2); BASO % 0.3 % (0.0-1.0); EOS # 0.2 10^3/uL (0.0-0.50); EOS % 1.5 % (0.0-3.0); HEMATOCRIT 40.9 % (42.0-52.0); LYMPH # 1.2 10^3/uL (1.5-4.5); LYMPH % 8.2 % (24.0-44.0); MEAN CORPUSCULAR HEMOGLOBIN 30.8 pg (27.0-33.0); MEAN CORPUSCULAR HGB CONC 31.8 g/dl (32.0-36.5); MEAN CORPUSCULAR VOLUME 96.9 fl (80.0-96.0); MONO # 1.1 10^3/uL (0.0-0.8); MONO % 7.3 % (0.0-5.0); NEUTROPHILS # 12.1 10^3/uL (1.8-7.7); PLATELET COUNT, AUTOMATED 259 10^3/uL (150-450); RED BLOOD COUNT 4.22 10^6/uL (4.30-6.10); WHITE BLOOD COUNT 14.8 10^3/uL (4.0-10.0)
[2018-08-04 07:59] LABS: BLOOD UREA NITROGEN 18 MG/DL (7-18); CALCIUM LEVEL 8.6 MG/DL (8.8-10.2); CARBON DIOXIDE LEVEL 31 MEQ/L (21-32); CHLORIDE LEVEL 106 MEQ/L (98-107); CREATININE FOR GFR 0.99 MG/DL (0.70-1.30); GLOMERULAR FILTRATION RATE > 60.0 (>42); GLUCOSE, FASTING 105 MG/DL (70-100); POTASSIUM SERUM 4.4 MEQ/L (3.5-5.1); SODIUM LEVEL 141 MEQ/L (136-145)
[2018-08-04] MEDS ORDERED: FLOM0.4C39 PO (08:38)
--- NOTE | 2018-08-04 08:41 | REP ---
Urinary tract sonography: History: Urinary retention. Findings: A Lord catheter is seen in place. There is a large cystic area above what appears to be the bladder measuring 8.5 cm in greatest diameter. This suggests a bladder diverticulum. Renal cortical echogenicity pattern is normal and contours are smooth bilaterally. There is no evidence of hydronephrosis on either side. Right kidney dimensions are 9.0 x 4.7 x 5.0 cm. This measurement is exclusive of a lower pole cyst seen on the right kidney which measures 2.9 x 2.4 x 2.6 cm. Left renal dimensions are 10.9 x 4.9 x 5.7 cm. The study is otherwise unremarkable. Impression: Lower pole cyst right kidney. No hydronephrosis. Lord catheter in the bladder. Large cystic area adjacent to the bladder suggestive of a large bladder diverticulum. Electronically Signed by Neptali Carbone MD 08/04/2018 02:44 P
[2018-08-04 09:00] VITALS: BP 110/72
== END 2018-08-04 09:02 | disposition home or self-care (01) ==
LOC: M ED 07:01
DX: R33.9 Retention of urine, unspecified (principal); N28.1 Cyst of kidney, acquired; N32.89 Other specified disorders of bladder; I10 Essential (primary) hypertension; J44.9 Chronic obstructive pulmonary disease, unspecified; Z88.5 Allergy status to narcotic agent; Z79.51 Long term (current) use of inhaled steroids; Z79.899 Other long term (current) drug therapy

== ENCOUNTER 2018-08-08 08:58 | Emergency (ER) | payer MEDICARE ==
[~2018-08-08] VITALS: Ht 177.8 cm; Wt 90.9 kg
[~2018-08-08 08:58] MED LIST: ADVA230A; BISO5TAB5; ELIQ5TAB; FINA5TAB2; FLOM0.4C39 PO; FURO20TA2; INCR1INH; LOSA25TA14; OMEP-221; TAMS1CAP17
[2018-08-08 08:59] VITALS: BP 111/57
== END 2018-08-08 10:01 | disposition home or self-care (01) ==
LOC: M ED 08:58
DX: T83.018A Breakdown (mechanical) of other urinary catheter, initial encounter (principal); R33.9 Retention of urine, unspecified; X58.XXXA Exposure to other specified factors, initial encounter; Y92.89 Other specified places as the place of occurrence of the external cause; I10 Essential (primary) hypertension; J44.9 Chronic obstructive pulmonary disease, unspecified; Z79.899 Other long term (current) drug therapy; Z79.01 Long term (current) use of anticoagulants; Z88.5 Allergy status to narcotic agent
CPT/HCPCS: 99284; G0463

== ENCOUNTER 2019-01-10 07:34 | Emergency (ER) | payer MEDICARE ==
[~2019-01-10 07:34] MED LIST changes: -BISO5TAB5; +BISO5TAB9
[2019-01-10] MEDS ORDERED: NS 1,000 ML IV ONE (07:45)
[2019-01-10] MEDS ORDERED: LIDOCAINE 2% 5ML JELLY UROJET TOP ONE (07:45)
[2019-01-10] MEDS ORDERED: ISOVUE-370 76% 100ML VIAL (Q9967) As Ordered ONE (07:49)
[2019-01-10] MEDS ORDERED: PROTHROMBIN COMPLEX CONCENTRAT IV ONE (08:30)
[2019-01-10] MEDS ORDERED: PROTHROMBIN COMPLEX CONCEN IV ONE (08:30)
[2019-01-10] MEDS ORDERED: [UNRECOGNIZED DRUG - OTHER] IV ONE (08:30)
[2019-01-10 08:40] VITALS: BP 78/64
--- NOTE | 2019-01-10 08:57 | REP ---
CT abdomen and pelvis with IV but without oral contrast: History: Rule out abdominal aortic aneurysm. No comparison CT study. CT contrast dose: 100 ml of intravenous Isovue 370. 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 The lung bases show mild linear fibrosis and bullous change in the right lower lobe. Lung bases are otherwise clear. No pleural effusion is seen. The liver and the spleen are normal in size homogeneous in texture. No adrenal lesion is seen. There is a very large retroperitoneal acute hematoma. An aortobi-iliac aneurysm is seen. The distal aortic component measures 7.8 cm in maximum AP dimension by 8.5 cm right to left. There are bilateral common iliac artery aneurysms extending from the distal aortic aneurysm. The left common iliac artery is 6.1 cm in AP dimension and the right common iliac artery aneurysm is 4.0 cm. The hematoma extends throughout the retroperitoneum, cephalad into the posterior pararenal space and caudad into the right iliopsoas retroperitoneal fat. On coronal multiplanar re-formation images, the top of the aneurysm is 1.5 cm distal to the a origin of the left renal artery. Renal arteries appear to be solitary and nonstenotic. Lord catheter is seen in place in the empty bladder. Left colonic diverticulosis is seen. The pancreas is displaced by the hematoma but otherwise intact. There is a cyst in the right kidney anteriorly measuring 2.8 cm in diameter. There is a small quantity of low attenuation fluid in the pelvic reflections. No other evidence of hemoperitoneum or ascites. Impression: Ruptured 7.8 x 8.5 cm, infrarenal, aortobi-iliac aneurysm with large retroperitoneal hematoma. There is a small quantity of low attenuation fluid in the pelvis. This report was provided directly to Dr. Meng in the ED at the time of the study by telephone. Electronically Signed by Neptali Carbone MD 01/10/2019 01:42 P
--- NOTE | 2019-01-12 19:30 | ECGEPIP ---
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
== END 2019-01-10 09:00 | disposition short-term general hospital (02) ==
LOC: M ED 07:34
DX: I71.3 Abdominal aortic aneurysm, ruptured (principal); I95.9 Hypotension, unspecified; I48.91 Unspecified atrial fibrillation; I10 Essential (primary) hypertension; J44.9 Chronic obstructive pulmonary disease, unspecified; E78.5 Hyperlipidemia, unspecified; K21.9 Gastro-esophageal reflux disease without esophagitis; N40.0 Benign prostatic hyperplasia without lower urinary tract symptoms; Z79.899 Other long term (current) drug therapy; Z79.01 Long term (current) use of anticoagulants; Z88.5 Allergy status to narcotic agent; Z87.891 Personal history of nicotine dependence
CPT/HCPCS: 36430; 51702; 74177; 86920; 86927; 93005; 93041; 96360; 96365; 99291; C9132; P9017; P9034; Q9967